=== PATIENT | male | born 1965 | race American Indian/Alaskan Native ===

== ENCOUNTER 2019-06-12 07:57 | Emergency (ER) | payer MEDICAID, OTHER ==
[2019-06-12] MEDS ORDERED: ASPIRIN 325 MG TAB PO ONE (08:28)
--- NOTE | 2019-06-12 09:00 | XRay Report ---
{null, CHEST 1 VIEW INDICATION: Chest Pain. COMPARISON: FINDINGS: SUPPORT DEVICES: None. HEART / MEDIASTINUM: Mild cardiac enlargement LUNGS / PLEURA: Bronchovascular markings are prominent. No significant pulmonary or pleural abnormali ty. No pneumothorax. ADDITIONAL FINDINGS: IMPRESSION: 1. Questionable mild pulmonary edema Signer Name: Mazin Zaldivar MD Signed: 06/12/2019 8:56 AM Workstation Name: [id number] }
[2019-06-12 10:05] LABS: Basophils # (Auto) 0.1 K/mm3 (0.0-0.1); Eosinophils # (Auto) 0.1 K/mm3 (0.0-0.4); Eosinophils % (Auto) 2.7 % (0.0-4.3); Hematocrit 44.1 % (35.5-45.6); Hemoglobin 14.4 gm/dl (11.8-15.2); Lymphocytes # (Auto) 0.7 K/mm3 (1.2-5.4); Lymphocytes % (Auto) 14.6 % (13.4-35.0); Mean Corpuscular HGB Conc 33 % (32-34); Mean Corpuscular Volume 91 fl (84-94); Monocytes # (Auto) 0.5 K/mm3 (0.0-0.8); Monocytes % (Auto) 10.5 % (0.0-7.3); Platelet Count 241 K/mm3 (140-440); Red Blood Count 4.86 M/mm3 (3.65-5.03); Red Cell Distribution Width 14.7 % (13.2-15.2)
[2019-06-12 10:26] LABS: BUN/Creatinine Ratio 15; Blood Urea Nitrogen 12 mg/dL (9-20); Calcium 9.5 mg/dL (8.4-10.2); Hemolysis Index 7
--- NOTE | 2019-06-12 10:40 | Emergency Department Report ---
{null, ED Shortness of Breath HPI - General Chief Complaint: High BP Stated Complaint: HBP Time Seen by Provider: 06/12/19 09:23 Source: patient, old records reviewed (Patient states he has been here in the past within the last year however, there is no past medical record available on [facility] for review) Mode of arrival: Ambulatory Limitations: No Limitations - History of Present Illness Initial Comments: 53-year-old male with a past medical history of hypertension, CHF, and morbid obesity presents to the hospital complaining of episode of diaphoresis and lightheadedness with shortness of breath while at rest and at home. Patient has chronic two-pillow orthopnea that is unchanged. He wakes up often in the middle the night short of breath and it has been recommended that he have a sleep apnea study but patient was unable to follow-up due to insurance issues. Triage reports that patient has a headache which patient denies. Patient has been nonc ompliant with his unknown medications for at least 3 months. Patient denies cough, fever, history of PE/DVT, CAD, calf tenderness, recent travel, or PE/DVT. - Related Data Previous Rx's Medication Instructions Recorded Last Taken Type Aspirin 325 mg PO ONCE #30 tablet 06/12/19 Unknown Rx Furosemide [Lasix TAB] 40 mg PO QDAY #30 tablet 06/12/19 Unknown Rx Potassium Chloride [K-Dur] 20 meq PO QDAY #30 tablet 06/12/19 Unknown Rx lisinopriL [Zestril TAB] 20 mg PO QDAY #30 tablet 06/12/19 Unknown Rx Allergies Allergy/AdvReac Type Severity Reaction Status Date / Time No Known Allergies Allergy Verified 06/12/19 09:27 ED Review of Systems ROS: Stated complaint: HBP Other details as noted in HPI Comment: All other systems reviewed and negative ED Past Medical Hx - Past Medical History Previous Medical History?: Yes Hx Hypertension: Yes Hx Congestive Heart Failure: Yes - Surgical History Past Surgical History?: No - Social History Smoking Status: Never Smoker Substance Use Type: None - Medications Home Medications: Home Medications Medication Instructions Recorded Confirmed Last Taken Type Aspirin 325 mg PO ONCE #30 tablet 06/12/19 Unknown Rx Furosemide [Lasix TAB] 40 mg PO QDAY #30 tablet 06/12/19 Unknown Rx Potassium Chloride [K-Dur] 20 meq PO QDAY #30 tablet 06/12/19 Unknown Rx lisinopriL [Zestril TAB] 20 mg PO QDAY #30 tablet 06/12/19 Unknown Rx ED Physical Exam - General Limitations: No Limitations - Other Other exam information: General: No acute distress Head: Atraumatic Eyes: normal appearance ENT: Moist mucous membranes Neck: Normal appearance, no midline tenderness Chest: Clear to auscultation bilaterally, diminished breath sounds at the bases CV: Regular rate and rhythm Abdomen: Soft, normal bowel sounds, nontender, nondistended, no rebound or guarding Back: Normal inspection Extremity: Normal inspection, full range of motion, no calf tenderness or leg edema Neuro: Alert O x 3, no facial asymmetry, speech clear, no gross motor sensory deficit Psych: Appropriate behavior Skin: No rash ED Course Vital Signs 06/12/19 06/12/19 06/12/19 08:15 09:15 09:22 Temperature 98.0 F 99.0 F Pulse Rate 86 91 H 84 Respiratory 24 22 22 Rate Blood Pressure 187/117 128/108 Blood Pressure 128/108 [Left] O2 Sat by Pulse 93 92 95 Oximetry 06/12/19 06/12/19 06/12/19 10:31 11:31 12:00 Temperature Pulse Rate 82 79 Respiratory 25 H 23 Rate Blood Pressure 128/108 169/101 210/113 Blood Pressure [Left] O2 Sat by Pulse 96 93 98 Oximetry 06/12/19 06/12/19 06/12/19 12:17 12:24 12:30 Temperature Pulse Rate 73 76 80 Respiratory 21 19 Rate Blood Pressure 179/102 193/103 Blood Pressure 179/102 [Left] O2 Sat by Pulse 94 96 Oximetry 06/12/19 06/12/19 06/12/19 13:00 14:09 14:30 Temperature Pulse Rate 79 80 Respiratory 17 34 H Rate Blood Pressure 173/104 156/98 172/110 Blood Pressure [Left] O2 Sat by Pulse 95 98 94 Oximetry - Reevaluation(s) Reevaluation #1: 06/12/19 14:36 pt bp 174/97 and sa 95% on room air. Patient states he has gone to the bathroom several times since receiving Lasix 60 mg IV. He denies current shortness of breath with exertion. No complaints of pain or recurrent dizziness. 06/12/19 14:49 pt does not have tachypnea at a rate of 34 as documented and is resting com fortably without respiratory distress ED Medical Decision Making - Lab Data Result diagrams: 06/12/19 09:40 06/12/19 09:40 Lab Results 06/12/19 06/12/19 06/12/19 Range/Units 09:40 09:40 09:40 WBC 5.1 (4.5-11.0) K/mm3 RBC 4.86 (3.65-5.03) M/mm3 Hgb 14.4 (11.8-15.2) gm/dl Hct 44.1 (35.5-45.6) % MCV 91 (84-94) fl MCH 30 (28-32) pg MCHC 33 (32-34) % RDW 14.7 (13.2-15.2) % Plt Count 241 (140-440) K/mm3 Lymph % (Auto) 14.6 (13.4-35.0) % [place] % (Auto) 10.5 H (0.0-7.3) % Eos % (Auto) 2.7 (0.0-4.3) % Baso % (Auto) 1.0 (0.0-1.8) % Lymph # 0.7 L (1.2-5.4) K/mm3 [place] # 0.5 (0.0-0.8) K/mm3 Eos # 0.1 (0.0-0.4) K/mm3 Baso # 0.1 (0.0-0.1) K/mm3 Seg Neutrophils % 71.2 H (40.0-70.0) % Seg Neutrophils # 3.7 (1.8-7.7) K/mm3 PT (12.2-14.9) Sec. INR (0.87-1.13) Sodium 139 (137-145) mmol/L Potassium 4.5 (3.6-5.0) mmol/L Chloride 97.0 L (98-107) mmol/L Carbon Dioxide 28 (22-30) mmol/L Anion Gap 19 mmol/L BUN 12 (9-20) mg/dL Creatinine 0.8 (0.8-1.5) mg/dL Estimated GFR > 60 ml/min BUN/Creatinine Ratio 15 % Glucose 208 H (75-100) mg/dL POC Glucose (70-105) Calcium 9.5 (8.4-10.2) mg/dL Troponin T < 0.010 (0.00-0.029) ng/mL NT-Pro-B Natriuret Pep 981.8 H (0-900) pg/mL 06/12/19 06/12/19 06/12/19 Range/Units 10:07 11:24 12:51 WBC (4.5-11.0) K/mm3 RBC (3.65-5.03) M/mm3 Hgb (11.8-15.2) gm/dl Hct (35.5-45.6) % MCV (84-94) fl MCH (28-32) pg MCHC (32-34) % RDW (13.2-15.2) % Plt Count (140-440) K/mm3 Lymph % (Auto) (13.4-35.0) % [place] % (Auto) (0.0-7.3) % Eos % (Auto) (0.0-4.3) % Baso % (Auto) (0.0-1.8) % Lymph # (1.2-5.4) K/mm3 [place] # (0.0-0.8) K/mm3 Eos # (0.0-0.4) K/mm3 Baso # (0.0-0.1) K/mm3 Seg Neutrophils % (40.0-70.0) % Seg Neutrophils # (1.8-7.7) K/mm3 PT 13.7 (12.2-14.9) Sec. INR 1.04 (0.87-1.13) Sodium (137-145) mmol/L Potassium (3.6-5.0) mmol/L Chloride (98-107) mmol/L Carbon Dioxide (22-30) mmol/L Anion Gap mmol/L BUN (9-20) mg/dL Creatinine (0.8-1.5) mg/dL Estimated GFR ml/min BUN/Creatinine Ratio % Glucose (75-100) mg/dL POC Glucose 195 H (70-105) Calcium (8.4-10.2) mg/dL Troponin T < 0.010 (0.00-0.029) ng/mL NT-Pro-B Natriuret Pep (0-900) pg/mL - EKG Data -: EKG Interpreted by Me EKG shows normal: sinus rhythm, ST-T waves (no stemi) Rate: normal (83) - Radiology Data Radiology results: report reviewed CHEST 1 VIEW INDICATION: Chest Pain. COMPARISON: FINDINGS: SUPPORT DEVICES: None. HEART / MEDIASTINUM: Mild cardiac enlargement LUNGS / PLEURA: Bronchovascular markings are prominent. No significant pulmonary or pleural abnormality. No pneumothorax. ADDITIONAL FINDINGS: IMPRESSION: 1. Questionable mild pulmonary edema - Medical Decision Making Patient presents with uncontrolled blood pressure/hypertension and signs of acute CHF secondary to medication noncompliance. Patient's chest x-ray shows mild CHF. He received IV Lasix with diuresis in the department. ekg unchanged x2 and troponin negative x2 and denies chest pain. patient also received clonidine 0.1 mg with improvement in blood pressure. Patient feels better with the ED treatment without signs of hypoxia and improving BP. Patient will be discharged home on Lasix and lisinopril as well as potassium daily and encouraged to follow-up with a primary care doctor and cardiology for further treatment. Patient encouraged to follow-up regarding sleep apnea testing as outpatient. - Differential Diagnosis CHF, AK, hypertensive emergency Critical Care Time: No Critical care attestation.: If time is entered above; I have spent that time in minutes in the direct care of this critically ill patient, excluding procedure time. ED Disposition Clinical Impression: CHF exacerbation, Uncontrolled hypertension, Morbid obesity, Noncompliance with medication regimen Disposition: DC-01 TO HOME OR SELFCARE Is pt being admited?: No Does the pt Need Aspirin: No Condition: Stable Instructions: Heart Failure (ED), Hypertension (ED) Additional Instructions: Take the medication as prescribed. Follow-up with your doctor or doctor/clinic provided. It is a possibility that the medications prescribed can affect your kidney function and your potassium level. It is very important that you follow- up with a physician to continue to monitor your symptoms and your kidneys while on the prescribed medications. Return if symptoms worsen as indicated by your discharge instructions. Prescriptions: Aspirin 325 mg PO ONCE #30 tablet Potassium Chloride [K-Dur] 20 meq PO QDAY #30 tablet Furosemide [Lasix TAB] 40 mg PO QDAY #30 tablet lisinopriL [Zestril TAB] 20 mg PO QDAY #30 tablet Referrals: JAMIE TORRES MD [Primary Care Provider] - 3-5 Days DANTE DAVENPORT MD [Staff Physician] - 3-5 Days (primary care doctor) [facility] [Provider Group] - 3-5 Days (primary care doctor ) BENTON CASEY MD [Staff Physician] - 3-5 Days (seamer operator) Time of Disposition: 14:44 }
[2019-06-12] MEDS ORDERED: FUROSEMIDE 40 MG/4 ML INJ IV ONE (10:42)
[2019-06-12 11:53] LABS: INR 1.04 (0.87-1.13)
[2019-06-12] MEDS ORDERED: cloNIDine 0.1 MG TAB PO ONE (12:12)
[2019-06-12 14:51] VITALS: BP 175/98
== END 2019-06-12 14:58 | disposition home or self-care (01) ==
LOC: ED 07:57
DX: I11.0 Hypertensive heart disease with heart failure (principal); I50.9 Heart failure, unspecified; E66.01 Morbid (severe) obesity due to excess calories; Z68.43 Body mass index [BMI] 50.0-59.9, adult; Z91.14 Patient's other noncompliance with medication regimen; Z79.899 Other long term (current) drug therapy
CPT/HCPCS: 36415; 71045; 80048; 82962; 83880; 84484; 85025; 85610; 93005; 93010; 96374; 99284; J1940

== ENCOUNTER 2019-09-01 13:31 | Emergency (ER) | payer SELFPAY ==
--- NOTE | 2019-09-01 14:40 | Emergency Department Report ---
ED Male HPI - General Chief complaint: Urogenital-Male Stated complaint: PULLED MUSCLE Time Seen by Provider: 09/01/19 14:33 Source: patient Mode of arrival: Ambulatory Limitations: No Limitations - History of Present Illness Initial comments: Mr. Treadwell is a 53 yo male with hx of HTN, obesity who presents with scrotal edema for 2-3 days. No pain. No fever. No trauma. Has not taken blood pressure medications in 2 months. Formerly on Lisinopril and furosemide. Does not have a PCP. No hx of diabetes or heart failure. MD Complaint: testicle swelling -: Gradual, days(s) (2) Severity: severe Consistency: constant Improves with: none Worsens with: none denies other symptoms - Related Data Previous Rx's Medication Instructions Recorded Last Taken Type Aspirin 325 mg PO ONCE #30 tablet 06/12/19 Unknown Rx Furosemide [Lasix TAB] 40 mg PO QDAY #30 tablet 06/12/19 Unknown Rx Potassium Chloride [K-Dur] 20 meq PO QDAY #30 tablet 06/12/19 Unknown Rx lisinopriL [Zestril TAB] 20 mg PO QDAY #30 tablet 06/12/19 Unknown Rx Doxycycline Hyclate [Doxycycline 100 mg PO Q12HR 10 Days #20 tab 09/01/19 Unknown Rx Hyclate TAB] Furosemide [Lasix TAB] 40 mg PO QDAY 30 Days #30 tablet 09/01/19 Unknown Rx Potassium Chloride [K-Dur] 2 tab PO QDAY 30 Days #60 tablet 09/01/19 Unknown Rx lisinopriL [Zestril TAB] 20 mg PO QDAY 30 Days #30 tablet 09/01/19 Unknown Rx Allergies Allergy/AdvReac Type Severity Reaction Status Date / Time No Known Allergies Allergy Verified 06/12/19 09:27 ED Review of Systems ROS: Stated complaint: PULLED MUSCLE Other details as noted in HPI Comment: All other systems reviewed and negative Constitutional: denies: fever, malaise Respiratory: denies: cough, shortness of breath Cardiovascular: denies: chest pain Gastrointestinal: denies: abdominal pain, nausea, vomiting ED Past Medical Hx - Past Medical History Previous Medical History?: Yes Hx Hypertension: Yes Hx Congestive Heart Failure: Yes - Surgical History Past Surgical History?: No - Social History Smoking Status: Former Smoker Substance Use Type: Alcohol - Medications Home Medications: Home Medications Medication Instructions Recorded Confirmed Last Taken Type Aspirin 325 mg PO ONCE #30 tablet 06/12/19 Unknown Rx Furosemide [Lasix TAB] 40 mg PO QDAY #30 tablet 06/12/19 Unknown Rx Potassium Chloride [K-Dur] 20 meq PO QDAY #30 tablet 06/12/19 Unknown Rx lisinopriL [Zestril TAB] 20 mg PO QDAY #30 tablet 06/12/19 Unknown Rx Doxycycline Hyclate [Doxycycline 100 mg PO Q12HR 10 Days #20 tab 09/01/19 Unknown Rx Hyclate TAB] Furosemide [Lasix TAB] 40 mg PO QDAY 30 Days #30 tablet 09/01/19 Unknown Rx Potassium Chloride [K-Dur] 2 tab PO QDAY 30 Days #60 tablet 09/01/19 Unknown Rx lisinopriL [Zestril TAB] 20 mg PO QDAY 30 Days #30 tablet 09/01/19 Unknown Rx ED Physical Exam - General Limitations: No Limitations General appearance: alert, in no apparent distress - Head Head exam: Present: atraumatic, normocephalic - Eye Eye exam: Present: normal appearance - ENT ENT exam: Present: mucous membranes moist - Neck Neck exam: Present: normal inspection, full ROM - Respiratory Respiratory exam: Present: normal lung sounds bilaterally. Absent: respiratory distress, wheezes, rales, rhonchi - Cardiovascular Cardiovascular Exam: Present: regular rate, normal rhythm, normal heart sounds. Absent: systolic murmur, diastolic murmur, rubs, gallop - GI/Abdominal GI/Abdominal exam: Present: soft, normal bowel sounds. Absent: distended, tenderness, guarding, rebound - Rectal Rectal exam: Present: deferred - Extremities Exam Extremities exam: Present: normal inspection - Neurological Exam Neurological exam: Present: alert, oriented X3 - Psychiatric Psychiatric exam: Present: normal affect, normal mood - Skin Skin exam: Present: warm, dry, intact, normal color. Absent: rash ED Course Vital Signs 09/01/19 09/01/19 09/01/19 13:45 14:34 16:18 Temperature 98.6 F Pulse Rate 96 H 95 H 95 H Respiratory 22 18 Rate Blood Pressure 204/103 193/103 Blood Pressure 173/101 [Left] O2 Sat by Pulse 96 95 Oximetry ED Medical Decision Making - Lab Data Result diagrams: 09/01/19 14:41 09/01/19 14:41 Laboratory Results - last 24 hr 09/01/19 09/01/19 14:41 14:41 WBC 8.1 RBC 4.69 Hgb 14.4 Hct 42.9 MCV 91 MCH 31 MCHC 34 RDW 14.4 Plt Count 247 Lymph % (Auto) 12.5 L [place] % (Auto) 9.5 H Eos % (Auto) 0.8 Baso % (Auto) 0.5 Lymph # 1.0 L [place] # 0.8 Eos # 0.1 Baso # 0.0 Seg Neutrophils % 76.7 H Seg Neutrophils # 6.2 Sodium 134 L Potassium 4.1 Chloride 94.1 L Carbon Dioxide 28 Anion Gap 16 BUN 15 Creatinine 0.8 Estimated GFR > 60 BUN/Creatinine Ratio 19 Glucose 130 H Calcium 9.3 Troponin T 0.013 NT-Pro-B Natriuret Pep 955.3 H - EKG Data 09/01/19 15:00 EKG obtained 1449 Normal sinus rhythm rate 95 bpm normal axis prolonged QTC no ST elevation nonischemic T wave pattern - Radiology Data Radiology results: report reviewed cxr: no acute pulmonary process - Medical Decision Making Mr. Treadwell presents with dependent scrotal edema without tenderness fever. According to electronic medical record, in May he was evaluated in this emergency department. at that time according to documentation did endorse that patient had congestive heart failure. I suspect dependent scrotal edema is related to heart failure. He received 1 dose of IV furosemide in the emergency department. BNP is elevated. Blood pressure addressed with IV labetalol. I have refilled lisinopril and furosemide. Provided referral to outpatient medicine physician. US scrotal: complex possible epididymitis seen left hydrocele and simple right hyrdocele We will treat with ceftriaxone and doxycycline for possible epididymitis Critical care attestation.: If time is entered above; I have spent that time in minutes in the direct care of this critically ill patient, excluding procedure time. ED Disposition Clinical Impression: Acute exacerbation of congestive heart failure, Scrotal edema, Epididymitis, Hypertensive urgency Disposition: DC-01 TO HOME OR SELFCARE Is pt being admited?: No Does the pt Need Aspirin: No Condition: Stable Instructions: Epididymitis (ED), Heart Failure (ED) Prescriptions: Doxycycline Hyclate [Doxycycline Hyclate TAB] 100 mg PO Q12HR 10 Days #20 tab Potassium Chloride [K-Dur] 2 tab PO QDAY 30 Days #60 tablet Furosemide [Lasix TAB] 40 mg PO QDAY 30 Days #30 tablet lisinopriL [Zestril TAB] 20 mg PO QDAY 30 Days #30 tablet Referrals: DANTE DAVENPORT MD [Staff Physician] - 3-5 Days
[2019-09-01] MEDS ORDERED: FUROSEMIDE 40 MG/4 ML INJ IV ONE (14:42)
[2019-09-01 15:05] LABS: Basophils % (Auto) 0.5 % (0.0-1.8); Eosinophils # (Auto) 0.1 K/mm3 (0.0-0.4); Eosinophils % (Auto) 0.8 % (0.0-4.3); Hematocrit 42.9 % (35.5-45.6); Hemoglobin 14.4 gm/dl (11.8-15.2); Lymphocytes % (Auto) 12.5 % (13.4-35.0); Mean Corpuscular HGB Conc 34 % (32-34); Mean Corpuscular Volume 91 fl (84-94); Monocytes # (Auto) 0.8 K/mm3 (0.0-0.8); Monocytes % (Auto) 9.5 % (0.0-7.3); Platelet Count 247 K/mm3 (140-440); Red Blood Count 4.69 M/mm3 (3.65-5.03); Red Cell Distribution Width 14.4 % (13.2-15.2)
[2019-09-01 15:16] LABS: BUN/Creatinine Ratio 19; Blood Urea Nitrogen 15 mg/dL (9-20); Calcium 9.3 mg/dL (8.4-10.2); Hemolysis Index 39
--- NOTE | 2019-09-01 15:42 | XRay Report ---
CHEST 1 VIEW 09/01/2019 2:34 PM INDICATION / CLINICAL INFORMATION: Dyspnea. Severe hypertension. COMPARISON: 06/12/19 FINDINGS: SUPPORT DEVICES: None. HEART / MEDIASTINUM: Heart is mildly enlarged but stable. Right pulmonary artery is prominent but sta ble. LUNGS / PLEURA: No significant pulmonary or pleural abnormality. No pneumothorax. ADDITIONAL FINDINGS: No significant additional findings. IMPRESSION: 1. Cardiomegaly with prominent right pulmonary artery, unchanged. 2. No acute pulmonary or pleural findings. Signer Name: Laya Lopez MD Signed: 09/01/2019 3:38 PM Workstation Name: [id number]
--- NOTE | 2019-09-01 16:38 | Ultrasound Report ---
ULTRASOUND SCROTUM INDICATION / CLINICAL INFORMATION: scrotal edema. COMPARISON: None available. FINDINGS -- RIGHT TESTIS: Size = 4.7 x 2.4 x 2.8 cm. - Appearance: No significant abnormality. - Cyst or Mass: None. - Color Doppler Flow: No significant abnormality. EPIDIDYMIS: No significant abnormality. HYDROCELE: Small to moderate. VARICOCELE: None demonstrated. FINDINGS -- LEFT TESTIS: Size = 4.5 x 2.3 x 2.8 cm. - Appearance: No significant abnormality. - Cyst or Mass: None. - Color Doppler Flow: No significant abnormality. EPIDIDYMIS: Mild enlargement and hypervascularity. HYDROCELE: Small to moderate complex hydrocele with septations. VARICOCELE: None demonstrated. ADDITIONAL FINDINGS: Moderate scrotal soft tissue edema. No abscess. IMPRESSION: 1. Possible left epididymitis. 2. Complex left hydrocele with simple right hydrocele. Signer Name: Laya Lopez MD Signed: 09/01/2019 4:34 PM Workstation Name: [id number]
[2019-09-01] MEDS ORDERED: cefTRIAXone/NS 2 GM/100 ML 2 GM/100 ML BAG IV ONE (16:59)
[2019-09-03 12:41] VITALS: BP 133/82
== END 2019-09-01 18:45 | disposition home or self-care (01) ==
LOC: ED 13:31
DX: I50.9 Heart failure, unspecified (principal); I11.0 Hypertensive heart disease with heart failure; N45.1 Epididymitis; I16.0 Hypertensive urgency; N50.89 Other specified disorders of the male genital organs; E66.9 Obesity, unspecified; Z87.891 Personal history of nicotine dependence; Z79.899 Other long term (current) drug therapy; Z68.43 Body mass index [BMI] 50.0-59.9, adult
CPT/HCPCS: 36415; 71045; 80048; 83880; 84484; 85025; 93005; 93975; 96365; 96375; 99284; J0696; J1940